=== PATIENT | male | born 1945 | race Caucasian/White ===

== ENCOUNTER → 2017-11-12 | Outpatient (CLI) | payer MEDICARE, BC | END | disposition home or self-care (01) | LOC: LABPAT 13:05 | PROVIDERS: ATTEND Orthopaedic Surgery | DX: Z01.812 Encounter for preprocedural laboratory examination (principal) | CPT/HCPCS: 87070 ==

== ENCOUNTER 2017-11-30 07:54 | Inpatient (IN) | payer MEDICARE, BC ==
[2017-11-23 08:54] VITALS: BMI 29.7
--- NOTE | 2017-11-29 09:20 | HP ---
HISTORY AND PHYSICAL REASON FOR ADMISSION: Surgery 11/30/2017 HISTORY OF PRESENT ILLNESS: Juan Rodriguez is a 72-year-old patient seen with symptomatic right knee osteoarthritis. We discussed treatment options. He elected to proceed with right total knee arthroplasty. Consent was obtained. Medical clearance provided by Dr. Bennett. PAST MEDICAL HISTORY: Nyr-vapkfwe-zqahznqzl diabetes, hypertension, hypothyroidism, hyperlipidemia. PAST SURGICAL HISTORY: Appendectomy, knee arthroscopy, partial colectomy. MEDICATIONS: Glucotrol, hydrochlorothiazide, Januvia, Lotrel, metformin, Synthroid and Zetia. ALLERGIES: None known. SOCIAL HISTORY: Patient denies current tobacco use. PHYSICAL EXAMINATION: Evaluation right knee range of motion is 0 to 125 degrees. Tenderness along the medial joint line. Positive medial Ugo's. Crepitus along the medial patellofemoral compartments. Range of motion. Pain with patellofemoral compression. Ligaments are stable. Hip rotation without pain. Distal neurovascular exam intact. RADIOGRAPHS: Right knee radiographs reveal severe medial moderate patellofemoral compartment osteoarthritis. IMPRESSION: 1. Right knee arthroplasty arthritis. 2. Hypertension. 3. Hyperlipidemia. 4. Taj-qkheagr-zarpumwrk diabetes. 5. Hypothyroidism. PLAN: Right total knee arthroplasty. Surgery 11/30/2017. MMODL / IJN: [id number] /
[~2017-11-30 07:54] MED LIST: ACETAMINOPHEN TAB 500 MG TAB PO ONE; DEXAMETHASONE SOD PHOSPHATE 10 MG/ML 1 ML VIAL IV ONE; MELOXICAM 7.5 MG TAB PO ONE; MIDAZOLAM 2 MG/2 ML VIAL IV PRN; ONDANSETRON 4 MG/2 ML VIAL IVP ONE; TRANEXAMIC ACID 1,000 MG in SODIUM CHLORIDE 0.9% 50 ML IVPB ONE; ceFAZolin IN SWFI 2 GM/20 ML SYRINGE IVP ONE; fentaNYL (PF) 50 MCG/ML 2 ML AMP IV PRN
[2017-11-30] MEDS ORDERED: LIDOCAINE 1% 20 ML VIAL (10MG/ML) FOR IV START INTRADERMA ONE (08:50)
[2017-11-30 08:51] LABS: Glucose,Whole Blood 109 mg/dL (75-99)
[2017-11-30] MEDS: LACTATED RINGERS 1,000 ML IV SCH (08:51)
[2017-11-30] MEDS ORDERED: ROPIVACAINE 1,100 MG, SODIUM CHLORIDE 0.9% 330 ML MISCELLANE PRN ×2 (10:07)
--- NOTE | 2017-11-30 10:16 | P.ONQ ---
Anesthesiology Proc Note - PNB - Peripheral Nerve Block Performed Right Adductor Canal Infusion Indication: Acute Post-Operative Pain Specifically requested for management of pain by DrLeilani: Ariel Samuels Sedation Type: Sedate with meaningful contact maintained Preparation: Sterile Dressing Position: Supine Catheter: Indwelling Needle Types: Other (see comment) (Orquidea) Needle Size: 100mm (4") Needle Gauge: 18 Technique: Ultrasound Injectate: 0.5% Ropivacaine (see comment for volume) (30 cc) Blood Aspirated: No Pain Paresthesia on Injection Noted: No Resistance on Injection: Normal Events: Uneventful and Well Tolerated
[2017-11-30] MEDS ORDERED: ceFAZolin 3,000 MG in SODIUM CHLORIDE 0.9% IRRIGATIO 3,000 ML IRRIGATION ONE (10:33)
[2017-11-30] MEDS: ROPIVACAINE 246.25 MG, EPINEPHrine 0.5 MG, KETOROLAC 30 MG, cloNIDine HCL/PF 80 MCG, WA... MISCELLANE ONE ×10 (10:59→12:00)
[2017-11-30] MEDS ORDERED: LACTATED RINGERS 1,000 ML IV ONE (11:26)
[2017-11-30] MEDS ORDERED: HYDROcodone/APAP 7.5-325MG 1 EACH TAB PO PRN (12:22)
[2017-11-30] MEDS ORDERED: MORPHINE SULFATE 4 MG/ML SYRINGE IVP PRN ×3 (12:22)
[2017-11-30] MEDS ORDERED: hydrOXYzine PAMOATE 25 MG CAP PO PRN (12:22)
[2017-11-30] MEDS ORDERED: ONDANSETRON 4 MG/2 ML VIAL IVP PRN (12:22)
[2017-11-30] MEDS ORDERED: NALOXONE 0.4 MG/ML 1 ML VIAL IV PRN (12:22)
--- NOTE | 2017-11-30 12:22 | P.OP ---
Date of Procedure: 11/30/17 Preoperative Diagnosis: Right knee osteoarthritis Postoperative Diagnosis: Right knee osteoarthritis Procedure(s) Performed: Right total knee arthroplasty Implants: 1. Microport evolution MP CS size 7 right cemented femur 2. Microport evolution MP size 7 cemented tibial baseplate 3. Microport evolution CS 10 mm polyethylene tibial insert 4. 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 After treatment options were discussed, he elected to proceed with total knee arthroplasty. Operative Findings: See description of procedure Description of Procedure: Patient was taken to the operative suite after having and adductor canal catheter placed by the department of anesthesia. Patient underwent a spinal anesthetic by the department of anesthesia. Patient was given preoperative IV intake antibiotics and TXA. A well-padded tourniquet was placed about the right lower extremity. The lower extremity was then prepped and draped in the normal sterile orthopedic fashion. The extremity was elevated, a tourniquet was insufflated to 300. A standard anterior incision was made sharply through skin. Dissection was taken down through the subcutaneous soft tissues down to the extensor mechanism. A medial arthrotomy was performed, patella was everted and knee was flexed. There was advanced osteoarthritis noted. A proximal tibial cutting guide was positioned. Proximal tibial cut was made. A distal intramedullary femoral cutting guide was positioned, distal femoral cut made. We placed the appropriate sizing guide and selected the appropriate size. A distal 4-in-1 femoral cutting block was positioned, distal femoral cuts were made. We now placed a trial femoral component into position, along with an appropriate size tibial tray and insert. We now took the knee through range of motion and had full extension good flexion and good overall soft tissue balance noted. The patella was everted and a flush cut made with patellar quad tendon. We templated the patella, appropriate drill holes were made. An appropriate trial patella was positioned, knee was taken through full range of motion with the patella tracking very nicely. The trial patella was removed. Drill holes were made through the femoral component. All trial components were removed after marking off the appropriate rotation of the tibia. Retractors were now positioned along the proximal tibia. An appropriate keel punch was made with the appropriate size tibial guide. At this point appropriate size implants were chosen and opened. The joint was irrigated copiously with pulse lavage mechanical irrigation. The deep soft tissues were infiltrated with local analgesic. We mixed antibiotic methylmethacrylate. Once the methyl methacrylate was ready, the tibial component was cemented into place removing any excess methylmethacrylate. The femoral component was cemented into place removing the removing any excess methylmethacrylate. We then inserted the appropriate size polyethylene tibial insert. We made sure that it was locked into position. We took the knee into full extension, and then back in a flexion making sure we had removed any excess methylmethacrylate. The patellar component was then cemented down and secured with clamp. Excess methylmethacrylate removed. We kept the knee in full extension, patellar clamp in position until methylmethacrylate had hardened. Once it had hardened the patellar clamp was removed. The knee was taken through full range of motion. The patella tracked nicely. There was good soft tissue balancing. The tourniquet was now released. Additional hemostasis was achieved via electrocautery. A second gram of TXA was given. The superficial soft tissues were infiltrated local analgesic. The wound was irrigated with pulse lavage mechanical irrigation. The extensor mechanism was repaired with Vicryl. We checked the repair with range of motion and it was stable. The subcutaneous soft tissues were repaired with Vicryl in layers. The skin was approximated with pernio/Dermabond. Sterile dressings were applied followed by loose web roll and Deandre bandage. The patient was transferred to a bed, and taken to recovery in stable and satisfactory condition. Faheem LANG assisted with the procedure.
--- NOTE | 2017-11-30 13:04 | XR ---
Limited right knee HISTORY: Status post right knee arthroplasty 2 views of the right knee No comparisons Patient is status post right knee arthroplasty. There are overlying surgical rupesh. Lucency present in the soft tissues compatible with postop state. There is anatomic alignment. IMPRESSION: Orthopedic follow-up.
[2017-11-30 13:10] LABS: Glucose,Whole Blood 213 mg/dL (75-99)
[2017-11-30] MEDS ORDERED: INSULIN ASPART 100 UNIT/ML 1 ML 10 ML VIAL SQ ONE (13:14)
[2017-11-30] MEDS: traMADol 50 MG TAB PO SCH ×3 (13:31→21:59)
[2017-11-30] MEDS: SODIUM CHLORIDE 0.9% 1,000 ML IV SCH (13:59)
[2017-11-30] MEDS: HYDROcodone/APAP 7.5-325MG 1 EACH TAB PO PRN (16:50)
[2017-11-30] MEDS: ceFAZolin IN SWFI 2 GM/20 ML SYRINGE IVP SCH (17:15)
[2017-11-30 17:22] LABS: Glucose,Whole Blood 210 mg/dL (75-99)
[2017-11-30] MEDS: INSULIN ASPART 100 UNIT/ML 1 ML 10 ML VIAL SQ SCH ×2 (17:22→22:00)
[2017-11-30 20:39] LABS: Glucose,Whole Blood 290 mg/dL (75-99)
[2017-11-30] MEDS ORDERED: SENNOSIDES-DOCUSATE SODIUM 1 EACH TAB PO SCH (21:00)
--- NOTE | 2017-11-30 22:03 | CONS ---
CONSULTATION DATE OF CONSULTATION: 11/30/2017 REASON FOR CONSULTATION: Medical management requested by Dr. Samuels. CONSULTATION: This is a pleasant 72-year-old patient of Dr. Hermes Bennett who has undergone a right total knee arthroplasty. Sitting up in a chair. Pain is controlled. No nausea or vomiting. Denies any chest pain. Patient's chronic stable medical conditions include diabetes, GERD, hypertension, hyperlipidemia, osteoarthritis, BPH, hypothyroid, Graves disease. Patient did tolerate his supper. Comfortable. REVIEW OF SYSTEMS: CONSTITUTIONAL: None. HEENT: None. RESPIRATORY: None. CARDIOVASCULAR: None. GASTROINTESTINAL: Heartburn. GENITOURINARY: BPH symptoms. DERMATOLOGICAL: None. HEMATOLOGICAL: None. LYMPHATICS: None. PSYCHIATRY: None. NEUROLOGICAL: None. PAST MEDICAL HISTORY: 1. Diabetes. 2. GERD. 3. Hyperlipidemia. 4. Hypertension. 5. Osteoarthritis. 6. BPH. 7. Hypothyroid. 8. Graves disease. 9. Decreased renal function. 10.History of pancreatitis. PAST SURGICAL HISTORY: 1. Appendectomy. 2. Bowel resection. 3. Left knee replacement. 4. Bowel resection for colitis. 5. Calcium deposit removed from jaw. SOCIAL HISTORY: Patient smoked for about 20 years, stopped 18 years ago; smoked about a pack a day. . FAMILY HISTORY: Cancer, type unknown. HOME MEDICATIONS: 1. Januvia 100 mg p.o. daily. 2. Metformin 1000 mg p.o. b.i.d. 3. Glucotrol XL 5 mg p.o. daily. 4. Lotrel 5/20 one capsule p.o. daily. 5. Turmeric. 6. Flomax 0.4 mg p.o. daily. 7. Multivitamin 1 tablet p.o. daily. 8. Synthroid 175 mcg p.o. daily. 9. Hydrochlorothiazide 12.5 p.o. daily. 10.Zetia 10 mg p.o. daily. 11.Vitamin D3 2000 units p.o. daily. 12.Aspirin 81 mg p.o. daily. ALLERGIES: IODINE. PHYSICAL EXAMINATION: Temperature 97.7, pulse 55, respiration 16, blood pressure 94/52, pulse ox 95% on 2 L. GENERAL APPEARANCE: Average build. Sitting up in a chair, comfortable. EYES: Pupils equal. Conjunctivae normal. HEENT: External appearance of nose and ears normal. Oral cavity normal. NECK: JVD not raised. Mass not palpable. RESPIRATORY: Effort normal. LUNGS: Fair air entry. CARDIOVASCULAR: First and second sounds normal. No edema. ABDOMEN: Soft, non-tender. Liver and spleen not palpable. LYMPHATIC: No lymph node palpable in neck or axillae. PSYCHIATRY: Alert and oriented x3. Mood and affect normal. NEUROLOGICAL: Pupils equal. Cranial nerves grossly intact. Power and sensation grossly intact. EXTREMITIES: Right knee in a dressing. Hemovac in place. INVESTIGATIONS: No blood work from today. Accu-Cheks are noted. ASSESSMENT: 1. Right total knee arthroplasty. 2. Diabetes mellitus, type 2, on oral hypoglycemic. 3. Gastroesophageal reflux disease. 4. Hypertension. 5. Hyperlipidemia. 6. Primary osteoarthritis in multiple joints. 7. Benign prostatic hypertrophy. 8. Hypothyroid. PLAN: Home medications will be resumed. Will keep a close eye on the blood pressure. Patient is on on Lovenox for DVT prophylaxis. Getting IV fluids. Accu-Cheks to be closely followed. Care was discussed with the patient. Thank you, Dr. Samuels. Will follow. MMODL / IJN: [id number] /
[2017-12-01] MEDS: ceFAZolin IN SWFI 2 GM/20 ML SYRINGE IVP SCH (01:20)
[2017-12-01] MEDS: LACTATED RINGERS 1,000 ML IV SCH (04:54)
[2017-12-01] MEDS: HYDROcodone/APAP 7.5-325MG 1 EACH TAB PO PRN (05:19)
[2017-12-01] MEDS ORDERED: LEVOTHYROXINE 100 MCG TAB PO SCH (06:30)
[2017-12-01] MEDS ORDERED: LEVOTHYROXINE 75 MCG TAB PO SCH (06:30)
[2017-12-01 07:05] LABS: Glucose,Whole Blood 179 mg/dL (75-99)
[2017-12-01 07:08] VITALS: RESP 16; TEMP 97.9
[2017-12-01] MEDS ORDERED: metFORMIN 500 MG TAB PO SCH (07:30)
[2017-12-01 07:35] LABS: Basophils % (A) 0 %; Eosinophils # (A) 0.1 k/uL (0-0.7); Eosinophils % (A) 1 %; HCT 35.6 % (39.0-53.0); HGB 11.8 gm/dL (13.0-17.5); Lymphocytes # (A) 1.1 k/uL (1.0-4.8); Lymphocytes % (A) 13 %; MCH 31.4 pg (25.0-35.0); MCHC 33.1 g/dL (31.0-37.0); MCV 94.8 fL (80.0-100.0); Mean Platelet Volume 6.7; Monocytes # (A) 0.4 k/uL (0-1.0); Monocytes % (A) 5 %; Neutrophils # (A) 6.3 k/uL (1.3-7.7); Neutrophils % (A) 80 %; Platelet Count 197 k/uL (150-450); RBC 3.75 m/uL (4.30-5.90); RDW 12.7 % (11.5-15.5); WBC 7.9 k/uL (3.8-10.6)
--- NOTE | 2017-12-01 08:04 | P.PN ---
Progress Note - Text Postoperative day # 1 status post total knee arthroplasty, on adductor canal perineural catheter placed for postoperative analgesia. Ropivacaine 0.2% 8 mL per hour through ON-Q pump continuous infusion. Pain is well controlled. On visual analog scale 1/10 Patient is taking PRN oral pain medications. Catheter site: Looks Ok. There is no erythema or tenderness. Continue with the current pain management plan and will follow.
[2017-12-01] MEDS: INSULIN ASPART 100 UNIT/ML 1 ML 10 ML VIAL SQ SCH ×2 (08:56→11:48)
[2017-12-01] MEDS ORDERED: TAMSULOSIN 0.4 MG CAP.ER.24H PO SCH (09:00)
[2017-12-01] MEDS ORDERED: MELOXICAM 7.5 MG TAB PO SCH (09:00)
[2017-12-01] MEDS ORDERED: ENOXAPARIN 30 MG/0.3 ML SYRINGE SQ SCH (09:00)
[2017-12-01] MEDS ORDERED: LINAGLIPTIN 5 MG TABLET PO SCH (09:00)
[2017-12-01] MEDS ORDERED: EZETIMIBE 10 MG TAB PO SCH (09:00)
[2017-12-01] MEDS ORDERED: FAMOTIDINE 20 MG TAB PO SCH (09:00)
[2017-12-01] MEDS ORDERED: LISINOPRIL 20 MG TAB PO SCH (09:00)
[2017-12-01] MEDS ORDERED: amLODIPine 5 MG TAB PO SCH (09:00)
[2017-12-01] MEDS: traMADol 50 MG TAB PO SCH ×2 (09:07→12:55)
[2017-12-01] MEDS: SODIUM CHLORIDE 0.9% 1,000 ML IV SCH (09:28)
--- NOTE | 2017-12-01 09:52 | P.DS ---
Providers Date of admission: 11/30/17 07:54 Expected date of discharge: 12/01/17 Attending physician: Ariel Samuels Consults: 11/30/17 12:22 Consult Physician Routine Consulting Provider: Lars Beltre Consult Reason/Comments: Medical management Do you want consulting provider notified?: Already Contacted Primary care physician: [facility] Course: Date of admission: 11/30/2017 Date of discharge: 12/01/2017 Admission diagnosis: Status post right total knee arthroplasty Discharge diagnosis: Same Attending physician: Dr. Samuels Surgical procedures: Right total knee arthroplasty Brief history: Patient is a 72-year-old male with a history of progressive primary right knee osteoarthritis. At this point patient has failed conservative treatment measures and has opted to proceed with a elective right total knee arthroplasty. Hospital course: Details of patient's surgery can be found in operative report. Patient tolerated the procedure well and was subsequently transported to orthopedic floor. Patient's orthopeidc and medical care was provided daily. Patient had daily laboratory tests performed for evaluation of overall blood counts. Patient had daily physical therapy to include strengthening range of motion as well as education with walker ambulation. Patient had daily CPM usage as part of their physical therapy program. Patient was treated with Lovenox for their postoperative DVT prophylaxis during their inpatient stay. Patient was noted to have a relatively uneventful postoperative course. Patient reported satisfactory pain control with oral pain medications by postoperative day 0. Patient showed satisfactory progress with physical therapy. Patient moved steadily through the program and had no difficulty meeting the goals by postoperative day 1. Given patient's otherwise satisfactory course and having met physical therapy goals, plan is to discharge patient home on postoperative day 1. Discharge condition/disposition: Patient will be discharged home in stable condition. Discharge medications: Instructions are given on resumption of patient's normal daily medications per primary care recommendation, in addition patient will be prescribed [place] 7.5 mg/325 mg, tramadol 50 mg, aspirin 325 mg. Discharge instructions: 1. Wound care and infection precautions, keep incision dry and covered while showering, no lotions, creams, moisturizers. No soaking, tubs, pools, hottubs. Do not scrub over the incision. 2. Weight-bear as tolerated with walker / cane until follow-up. 3. Ice and elevate when necessary. Do not exceed 20 minutes per hour with ice pack. 4. Utilize compression sleeve until seen at first follow up appointment. 5. Visiting nursing care. 6. Home physical therapy including home CPM. 7. Pain meds and anticoagulants per prescription. 8. Pain medication has potential to cause constipation. Increase oral fluid and fiber intake. Contact primary care provider if you have not had a bowel movement within 48 hours after discharge 9. No anti-inflammatory medication until discussed at first post operative visit, this including Motrin, Aleve, Mobic, Diclofenac. 10. Follow up in office at 2 weeks postop with Faheem Proctor PA-C 11. Follow up with your primary care doctor 7-10 days after discharge. 12. Contact [facility] with any questions, . Procedures: Right total knee arthroplasty Patient Condition at Discharge: Good Plan - Discharge Summary Discharge Rx Participant: No New Discharge Prescriptions: New Aspirin 325 mg PO BID #60 tab HYDROcodone/APAP 7.5-325MG [[place] 7.5] 1 - 2 each PO Q6HR PRN #40 tab PRN Reason: Pain traMADol HCl [Ultram] 50 mg PO Q6H PRN #40 tab PRN Reason: Pain No Action amLODIPine BESYLATE/BENAZEPRIL [Lotrel 5-20 mg Capsule] 1 cap PO DAILY Levothyroxine Sodium [Synthroid] 175 mcg PO DAILY sitaGLIPtin [Januvia] 100 mg PO DAILY metFORMIN HCL [metFORMIN HCL] 1,000 mg PO BID Ezetimibe [Zetia] 10 mg PO DAILY glipiZIDE XL [Glucotrol XL] 5 mg PO DAILY Hydrochlorothiazide [Hydrodiuril] 12.5 mg PO DAILY Multivitamins, Thera [Multivitamin (formulary)] 1 tab PO DAILY Cholecalciferol (Vitamin D3) [Vitamin D3] 2,000 unit PO DAILY Tamsulosin [Flomax] 0.4 mg PO DAILY Turmeric Root Extract [Turmeric] 500 mg PO DAILY Discharge Medication List Ezetimibe [Zetia] 10 mg PO DAILY 09/25/14 [History] Levothyroxine Sodium [Synthroid] 175 mcg PO DAILY 09/25/14 [History] amLODIPine BESYLATE/BENAZEPRIL [Lotrel 5-20 mg Capsule] 1 cap PO DAILY 09/25/14 [History] metFORMIN HCL [metFORMIN HCL] 1,000 mg PO BID 09/25/14 [History] sitaGLIPtin [Januvia] 100 mg PO DAILY 09/25/14 [History] glipiZIDE XL [Glucotrol XL] 5 mg PO DAILY 09/30/14 [History] Hydrochlorothiazide [Hydrodiuril] 12.5 mg PO DAILY 01/01/16 [History] Cholecalciferol (Vitamin D3) [Vitamin D3] 2,000 unit PO DAILY 11/23/17 [History] Multivitamins, Thera [Multivitamin (formulary)] 1 tab PO DAILY 11/23/17 [History ] Tamsulosin [Flomax] 0.4 mg PO DAILY 11/23/17 [History] Turmeric Root Extract [Turmeric] 500 mg PO DAILY 11/23/17 [History] Aspirin 325 mg PO BID #60 tab 12/01/17 [Rx] HYDROcodone/APAP 7.5-325MG [[place] 7.5] 1 - 2 each PO Q6HR PRN #40 tab 12/01/17 [ Rx] traMADol HCl [Ultram] 50 mg PO Q6H PRN #40 tab 12/01/17 [Rx] Follow up Appointment(s)/Referral(s): Ariel Samuels DO [Doctor of Osteopathic Medicine] - 12/16/17 2:10 pm [facility], [NON-STAFF] - [facility] [REFERRING] - 12/09/17 9:00 am Activity/Diet/Wound Care/Special Instructions: Orthopedic Discharge Instructions: 1. Wound care and infection precautions, keep incision dry and covered while showering, no lotions, creams, moisturizers. No soaking, pools, hot tubs. Do not scrub over incision. 2. Weight-bear as tolerated with walker / cane until follow-up. 3. Ice and elevate when necessary. Do not exceed 20 minutes per hour with ice pack. 4. Utilize compression sleeve until seen at first follow up appointment. 5. Visiting nursing care. 6. Home physical therapy including home CPM. 7. Pain meds and anticoagulants per prescription. 8. Pain medication has potential to cause constipation. Increase oral fluid and fiber intake. Contact primary care provider if you have not had a bowel movement within 48 hours after discharge. 9. No anti-inflammatory medication until discussed at first post operative visit, this including Motrin, Aleve, Mobkemi, Diclofenac. 10. Follow up in office at 2 weeks postop with Faheem Proctor PA-C 11. Follow up with your primary care doctor 7-10 days after discharge. 12. Contact [facility] with any questions, . Discharge Disposition: HOME WITH HOME HEALTH SERVICES
[2017-12-01 11:20] LABS: Glucose,Whole Blood 165 mg/dL (75-99)
--- NOTE | 2017-12-01 13:28 | P.PN ---
Subjective Progress Note Date: 12/01/17 Principal diagnosis: Status post right total knee arthroplasty Patient is seen today resting in his hospital bed, his is present at bedside. He denies any acute pain. His tolerated physical therapy very well. He denies any headaches, lightheadedness, chest pain or shortness of breath. Objective - Vital Signs Vital signs: Vital Signs Temp 97.9 F 12/01/17 07:00 Pulse 58 L 12/01/17 07:10 Resp 16 12/01/17 07:00 BP 114/55 12/01/17 07:00 Pulse Ox 95 12/01/17 07:00 Intake & Output 11/30/17 12/01/17 12/01/17 18:59 06:59 18:59 Intake Total 1401 3081 180 Output Total 255 Balance 1146 3081 180 Weight 86.183 kg Intake: IV 1401 Intake, IV Titration 1461 Amount Lactated Ringers 1,000 ml 1000 As IV .[facility] Rx#: [id number] Sodium Chloride 0.9% 1, 461 000 ml @ 50 mls/hr IV . Q20H [facility] Rx#:[id number] Oral 1620 180 Output: Urine 200 Estimated Blood Loss 55 Other: Voiding Method Urinal Toilet Urinal # Voids 2 1 # Bowel Movements 0 # [place] 0 - Exam Right lower extremity: Incision is clean, dry, and intact. Kyler are in good position. There is minimal soft tissue swelling and ecchymosis surrounding the medial and lateral aspects of the incision. Calf is soft, no tenderness with palpation. Plantar flexion, dorsiflexion, EHL, FHL are intact. Sensory exam to light touch throughout the extremity is intact, dorsal pedis pulses 2+. - Labs CBC & Chem 7: 12/01/17 06:33 Labs: Abnormal Lab Results - Last 24 Hours (Table) 11/30/17 11/30/17 12/01/17 Range/Units 17:19 20:37 06:33 RBC 3.75 L (4.30-5.90) m/uL Hgb 11.8 L (13.0-17.5) gm/dL Hct 35.6 L (39.0-53.0) % POC Glucose (mg/dL) 210 H 290 H (75-99) mg/dL 12/01/17 12/01/17 Range/Units 06:58 11:18 RBC (4.30-5.90) m/uL Hgb (13.0-17.5) gm/dL Hct (39.0-53.0) % POC Glucose (mg/dL) 179 H 165 H (75-99) mg/dL Assessment and Plan Plan: Assessment: 1. Postop day #1 status post right total knee arthroplasty Plan: 1. Pain control, utilize oral medication as needed 2. GI and DVT prophylaxis, we'll discharge on aspirin 325 mg twice a day 3. Home therapy and nursing after discharge 4. Medical recommendations 5. Wound care instructions were discussed 6. Discharge planning: Patient will be discharged home today Time with Patient: Less than 30
[2017-12-01 14:13] LABS: Hemoglobin A1C 6.7 % (4.0-6.0)
[2017-12-01 14:28] VITALS: BP 125/73; PULSE 60
--- NOTE | 2017-12-02 00:43 | PN ---
PROGRESS NOTE DATE OF SERVICE: December 01, 2017 PRESENTING COMPLAINT: Knee surgery. INTERVAL HISTORY: This patient was seen by me yesterday morning. The patient is status post knee surgery, doing well. Pain is controlled. No nausea, vomiting. No dizziness. No lightheadedness. Did tolerate her breakfast. Keen to go home. REVIEW OF SYSTEMS: Done for constitutional, cardiovascular, GI, pulmonary and relevant findings as above. CURRENT MEDICATIONS: Reviewed. EXAMINATION: Temperature 97.9, pulse 68, respirations 16, blood pressure 114/55, pulse ox 95% on room air. General appearance: Sitting up in a chair, comfortable. Eyes: Pupils are equal. Conjunctivae normal. HEENT: External appearance of nose and ears normal. Oral cavity normal. Neck JVD not raised. Mass not palpable. Respiratory effort lungs are clear. Cardiovascular 1st and 2nd sounds normal. No edema. ABDOMEN: Soft, nontender. Liver and spleen is not palpable. Psychiatry: Alert and oriented x3. Mood and affect normal. INVESTIGATIONS: Hemoglobin 11.8. ASSESSMENT: 1. Right total knee arthroplasty. 2. Diabetes mellitus type 2 on oral hypoglycemic. 3. Gastroesophageal reflux disease. 4. Essential hypertension. 5. Hyperlipidemia. 6. Primary osteoarthritis multiple joints. 7. Benign prostatic hypertrophy. 8. Hypothyroid. PLAN: Patient is stable. Continue current medication and treatment plan. MMODL / IJN: [id number] /
== END 2017-12-01 15:06 | disposition home health service (06) | DRG 470 ==
LOC: 2ORMAIN 07:54 → 3SUR 13:03
PROVIDERS: ADMIT Orthopaedic Surgery; ATTEND Orthopaedic Surgery
PROC: 0SRC0J9 Replacement of Right Knee Joint with Synthetic Substitute, Cemented, Open Approach (ICD-10-PCS; principal; 2017-11-30 10:10)
DX: M17.11 Unilateral primary osteoarthritis, right knee (principal); E03.9 Hypothyroidism, unspecified; E11.9 Type 2 diabetes mellitus without complications; E78.5 Hyperlipidemia, unspecified; I10 Essential (primary) hypertension; E05.00 Thyrotoxicosis with diffuse goiter without thyrotoxic crisis or storm; N40.0 Benign prostatic hyperplasia without lower urinary tract symptoms; K21.9 Gastro-esophageal reflux disease without esophagitis; Z96.652 Presence of left artificial knee joint; Z79.84 Long term (current) use of oral hypoglycemic drugs; Z79.82 Long term (current) use of aspirin; Z90.89 Acquired absence of other organs; Z90.49 Acquired absence of other specified parts of digestive tract; Z79.899 Other long term (current) drug therapy; Z79.890 Hormone replacement therapy; Z87.891 Personal history of nicotine dependence; Z91.041 Radiographic dye allergy status
CPT/HCPCS: 83036; 85025; 88300